=== PATIENT | male | born 1960 | race Caucasian/White ===

== ENCOUNTER → 2017-02-12 | Outpatient (CLI) | payer BC ==
--- NOTE | 2017-02-12 12:16 | Diagnostic Imaging Report ---
EXAMINATION: KUB. INDICATION: Left UPJ stone. FINDINGS: There is a 1.8 cm calcification seen in the left flank which corresponds with the provided history of left UPJ stone. No prior studies are available for comparison. There are calcifications with a very faint density seen in the pelvis which could relate to phleboliths or potentially may relate to fecal material. No definitive right kidney, ureteric, or bladder stones. IMPRESSION: There is a 1.8 cm left flank calcification which correlates with the provided history of left UPJ stone. Dictated by: Dictated on workstation # [id number]
== END ==
LOC: RAD 11:15
PROVIDERS: ATTEND Urology
DX: N20.1 Calculus of ureter (principal)
CPT/HCPCS: 74000

== ENCOUNTER 2017-02-21 05:37 | Outpatient (CLI) | payer BC ==
[~2017-02-21] VITALS: Ht 182.9 cm; Wt 90.7 kg
[2017-02-21] MEDS ORDERED: ONDA4TAB11 PO (09:31)
[2017-02-21] MEDS ORDERED: HYDR-3816 PO (09:31)
== END 2017-02-21 10:15 ==
LOC: PREOP 05:37
PROVIDERS: ATTEND Urology
DX: Z01.818 Encounter for other preprocedural examination (principal); N20.1 Calculus of ureter

== ENCOUNTER 2017-02-27 06:17 | Day surgery (SDC) | payer BC ==
[~2017-02-27] VITALS: Ht 182.9 cm; Wt 90.7 kg
[~2017-02-27 06:17] MED LIST: HYDR-3816 PO; ONDA4TAB11 PO
--- NOTE | 2017-02-27 07:09 | Progress Note-Pre Operative ---
Pre-Operative Progress Note H&P Reviewed The H&P was reviewed, patient examined and no changes noted. Date Seen by Provider: Feb 27, 2017 Time Seen by Provider: 07:09 Date H&P Reviewed: Feb 27, 2017 Time H&P Reviewed: 07:09 Pre-Operative Diagnosis: LT RENAL STONE YESSICA TUBBS MD Feb 27, 2017 7:09 am
--- NOTE | 2017-02-27 07:10 | Diagnostic Imaging Report ---
INDICATION: Urinary tract calculi Supine view of the abdomen is obtained with comparison made to study of 02/12/2017. Similar to the previous study, there is an approximately 2 x 1 cm calcification or group of calcifications in the medial left midabdomen at the L2-3 level. This may reside within the left renal collecting system. Otherwise, there is no evidence of pathologic abdominal calcification or adverse change when compared to previous study. IMPRESSION: Persistent calcification in the left midabdomen which may reside within the left renal collecting system. Dictated by: Dictated on workstation # [id number]
[2017-02-27] MEDS ORDERED: cefTRIAXone 1 GM/NS 50 ML IVPB IV ONE ×2 (07:15)
[2017-02-27] MEDS: LACTATED RINGERS 1,000 ML IV PRN ×2 (07:37→12:23)
[2017-02-27 08:56] VITALS: BP 160/96
[2017-02-27] MEDS ORDERED: LACTATED RINGERS 0 ML IV ONE (11:38)
[2017-02-27] MEDS ORDERED: ROCURONIUM 50 MG/5 ML (ZEMURON) VIAL IV ONE (11:38)
[2017-02-27] MEDS ORDERED: SUCCINYLCHOLINE INJ 100 MG/5 ML SYR ONE (11:38)
[2017-02-27] MEDS ORDERED: fentaNYL INJECTION 100 MCG/2 ML AMP ONE (11:38)
[2017-02-27] MEDS ORDERED: proPOfol 200 MG/20 ML (DIPRIVAN) VIAL IV ONE (11:38)
[2017-02-27] MEDS ORDERED: ONDANSETRON 4 MG/2 ML (SDV) Z0FRAN ONE (11:38)
[2017-02-27] MEDS ORDERED: MIDAZOLAM 2 MG/2 ML (VERSED) VIAL ONE (11:38)
[2017-02-27] MEDS ORDERED: LIDOCAINE PF 2% 5 ML (XYLOCAINE) VIAL ONE (11:39)
[2017-02-27] MEDS ORDERED: SEVOFLURANE (ULTANE) 15 ML INHAL SOLN ONE ×2 (11:42→12:04)
[2017-02-27] MEDS ORDERED: FUROSEMIDE 40 MG/4 ML INJ (LASIX) ONE (12:05)
--- NOTE | 2017-02-27 12:10 | Discharge Inst-Urology ---
Discharge Inst-Urology Discharge Medications New, Converted, or Re-newed RX: RX on Chart Patient Instructions/Follow Up Plan Please make appointment to been seen in office Sunday 03/11, KUB prior to it KUB on way home Post ESWL instructions Increase oral fluids for 48 hours and then as needed. Diet and Activity as tolerated. If questions or concerns contact your physician Or seek help at emergency department. YESSICA TUBBS MD Feb 27, 2017 12:10 pm
--- NOTE | 2017-02-27 12:13 | Progress Note-Post Operative ---
Post-Operative Progess Note Surgeon (s)/Rectifying Attendant (s) Surgeon YESSICA TUBBS MD Rectifying Attendant: N/A Pre-Operative Diagnosis LT RENAL STONE Post-Operative Diagnosis SAME Procedure & Operative Findings Date of Procedure 02/27/17 Procedure Performed/Findings LT ESWL Anesthesia Type GENERAL Estimated Blood Loss Estimated blood loss (mL): N/A Specimens/Packing Specimens Removed N/A Packing: N/A YESSICA TUBBS MD Feb 27, 2017 12:13 pm
[2017-02-27] MEDS ORDERED: LIDOCAINE 2% 20 ML (XYLOCAINE) VIAL ONE (12:17)
[2017-02-27] MEDS ORDERED: DEXAMETHASONE 10 MG/ML (DECADRON) 1 ML VIAL ONE (12:20)
[2017-02-27] MEDS ORDERED: ONDANSETRON 4 MG/2 ML (SDV) Z0FRAN IVP PRN (12:45)
[2017-02-27] MEDS ORDERED: fentaNYL INJECTION 100 MCG/2 ML AMP IVP PRN (12:45)
[2017-02-27] MEDS ORDERED: KETOROLAC 30 MG/ML VIAL IVP ONE (12:45)
[2017-02-27 13:25] VITALS: BP 156/99
[2017-02-27 13:55] VITALS: BP 154/86
[2017-02-27] MEDS ORDERED: HYDR-3875 PO (14:08)
[2017-02-27] MEDS ORDERED: NITR-68 PO (14:08)
[2017-02-27] MEDS ORDERED: TAMS0.4C98 PO (14:08)
[2017-02-27 14:25] VITALS: BP 172/93
--- NOTE | 2017-02-27 18:28 | Diagnostic Imaging Report ---
INDICATION: Status post ESWL. COMPARISON: Earlier same day. FINDINGS: Two supine radiographic views of the abdomen were obtained and demonstrate expected changes status post ESWL. Multiple smaller amorphous calcifications are now noted within the left renal pelvis. There has been interval migration of small calculi into the more peripheral calyces of the left kidney as well. No unexpected radiopaque foreign bodies are seen. Small bowel loops are nondistended. IMPRESSION: 1. Expected changes to patient's known left renal calculus status post ESWL as described above. Dictated by: Dictated on workstation # [id number]
--- NOTE | 2017-02-28 11:54 | OPERATIVE REPORT ---
DATE OF SERVICE: 02/27/2017 PREOPERATIVE DIAGNOSIS: Left renal stone. POSTOPERATIVE DIAGNOSIS: Left renal stone. OPERATION PERFORMED: Left ESWL. SURGEON: Prakash Tubbs MD. ANESTHESIA: General. COMPLICATIONS: None. PROCEDURE IN DETAIL: Under satisfactory general anesthesia with the patient supine on the ESWL table, the left renal stone was localized and shocks were delivered at kV of 5. A total of 3000 shocks were delivered. There was good fragmentation of the stone, but no assurance that he would not need another one next time when the patient is here in 2 weeks. The patient received 40 mg of Lasix and 30 mg of Toradol IV at the end of the procedure. He tolerated the procedure and anesthesia well and was sent to recovery room in stable condition. Job ID: [id number] DocumentID: [id number] Dictated Date: 02/27/2017 12:28:07 [employer] Date: 02/28/2017 01:38:18 Dictated By: PRAKASH TUBBS MD
== END 2017-02-27 14:43 | disposition home or self-care (01) ==
LOC: SDC 06:17
PROVIDERS: ATTEND Urology
DX: N20.0 Calculus of kidney (principal); I25.10 Atherosclerotic heart disease of native coronary artery without angina pectoris; I10 Essential (primary) hypertension; E11.9 Type 2 diabetes mellitus without complications; N40.0 Benign prostatic hyperplasia without lower urinary tract symptoms; E29.1 Testicular hypofunction; Z95.5 Presence of coronary angioplasty implant and graft
CPT/HCPCS: 74000; 87081

== ENCOUNTER → 2017-03-11 | Outpatient (CLI) | payer BC ==
[~2017-03-11] MED LIST changes: +HYDR-3875 PO; +NITR-68 PO; +TAMS0.4C98 PO
--- NOTE | 2017-03-11 14:10 | Diagnostic Imaging Report ---
EXAMINATION: Supine view of the abdomen. INDICATION: History of stones. FINDINGS: There are left flank stones projecting over the lower pole of the left kidney measuring up to 7 mm in size. There are also multiple calcifications at the left L4 transverse process level with the appearance of numerous fragments, suggestive of proximal left ureteric location. No stones in the right flank are identified. Pelvic calcifications appear to be within the prostate gland. IMPRESSION: Numerous stone fragments are seen in the proximal left ureter and in the left renal pelvis. Dictated by: Dictated on workstation # [id number]
== END ==
LOC: RAD 13:05
PROVIDERS: ATTEND Urology
DX: N20.0 Calculus of kidney (principal)
CPT/HCPCS: 74000

== ENCOUNTER → 2017-04-08 | Outpatient (CLI) | payer BC ==
--- NOTE | 2017-04-08 15:05 | Diagnostic Imaging Report ---
Supine view of the abdomen. INDICATION: Left ureteric and renal stones. FINDINGS: There are faint densities seen in the side of the pelvis measuring up to 5 mm raising question of distal left ureteric stone fragment. No definitive urinary tract stone is seen otherwise. Moderate amount of fecal material is seen in the colon. IMPRESSION: Faint 5 mm density in the left side of the pelvis could correlate with a stone fragment. Dictated by: Dictated on workstation # [id number]
== END ==
LOC: RAD 12:09
PROVIDERS: ATTEND Urology
DX: N20.2 Calculus of kidney with calculus of ureter (principal)
CPT/HCPCS: 74000

== ENCOUNTER → 2017-07-11 | Outpatient (CLI) | payer BC ==
[~2017-07-11] MED LIST changes: +HYDR-34 PO; -HYDR-3816 PO
--- NOTE | 2017-07-11 15:24 | Diagnostic Imaging Report ---
INDICATION: Left renal stone post lithotripsy. TIME OF EXAM: 02:28 p.m. Correlation is made with prior study from 04/08/2017. No definite radiopaque calculi are identified overlying bilateral renal shadows. There is a tiny calcific density in the left hemipelvis which is unchanged and may represent a phlebolith. The previously noted faint calcific density, perhaps in the distal left ureter is no longer appreciated. IMPRESSION: No definite radiopaque urinary tract calculi are identified on today's study. Dictated by: Dictated on workstation # [id number]
== END ==
LOC: RAD 13:59
PROVIDERS: ATTEND Urology
DX: Z09 Encounter for follow-up examination after completed treatment for conditions other than malignant neoplasm (principal); Z87.442 Personal history of urinary calculi
CPT/HCPCS: 74018